=== PATIENT | male | born 1980 | race Caucasian/White ===

== ENCOUNTER 2016-08-25 14:47 | Emergency (ER) | payer OTHER ==
[2016-08-25] MEDS ORDERED: FAMOTIDINE INJ/PF 20 MG/2 ML SDV IV ONE ×2 (14:53→14:55)
[2016-08-25] MEDS ORDERED: DIPHENHYDRAMINE HCL 50 MG/ML VIAL IV ONE (14:53)
[2016-08-25] MEDS ORDERED: DEXAMETHASONE SOD PHOS INJ 10 MG/1 ML VIAL IV ONE (14:53)
[2016-08-25] MEDS ORDERED: NORMAL SALINE 1000 ML 1,000 ML IV ONE (14:54)
[2016-08-25] MEDS ORDERED: DEXTROSE 5%-WATER 250 ML with EPINEPHRINE/PF 1 MG IV PRN ×2 (14:54)
[2016-08-25] MEDS ORDERED: DIPHENHYDRAMINE HCL 50 MG/ML VIAL ONE (14:55)
[2016-08-25] MEDS ORDERED: DEXAMETHASONE SOD PHOSPHATE INJ 4 MG/1 ML VIAL ONE (14:55)
[2016-08-25] MEDS ORDERED: EPINEPHRINE INJ/PF 1 MG/1 ML AMPULE ONE (15:01)
--- NOTE | 2016-08-25 15:08 | ER Document Report ---
ED Allergic Reaction - General Stated Complaint: ALLERGIC REACTION Time Seen by Provider: 08/25/16 14:53 Mode of Arrival: Ambulatory Information source: Patient, Relative - HPI Onset: Just prior to arrival - 1 HOUR [employer] Onset/Duration: Sudden Quality of pain: Burning, Other - ITCHING Severity: Moderate Identified cause: Yes Other exposure: Other - INSECT STINGS Skin rash / itching: Diffuse, "Redness", "Hives" Swelling: Face, Lip(s), Tongue Associated symptoms: Heart racing Similar symptoms previously: Yes - ALLERGIC REACTIONS TO STINGS Recently seen / treated by doctor: No - Related Data Allergies/Adverse Reactions: No Known Allergies Allergy (Verified 08/25/16 15:09) Past Medical History - General Information source: Patient, Relative - Social History Smoking Status: Unknown if Ever Smoked Frequency of alcohol use: Occasional Drug Abuse: None Lives with: Spouse/Significant other Family History: Reviewed & Not Pertinent Patient has suicidal ideation: No Patient has homicidal ideation: No - Medical History Medical History: Negative Surgical Hx: Negative Review of Systems - Review of Systems Constitutional: No symptoms reported EENT: Throat swelling - SLIGHT, Mouth swelling Cardiovascular: No symptoms reported Respiratory: No symptoms reported Gastrointestinal: No symptoms reported Genitourinary: No symptoms reported Musculoskeletal: No symptoms reported Skin: Rash Neurological/Psychological: No symptoms reported Physical Exam - Vital signs Vitals: Resp BP Pulse Ox 24 H 120/73 96 08/25/16 14:54 08/25/16 14:54 08/25/16 14:54 Course - Re-evaluation Re-evalutation: 08/25/16 15:53 Patient reports he's much improved subjectively. Itching has resolved. Sensation of swelling in the throat has resolved. He denies shortness of breath. On exam, he appears comfortable, erythema and urticaria have resolved, and lungs are clear. At this point, epinephrine drip will be discontinued and patient will be observed for another hour. Anticipate discharge if no recurrent symptoms. - Vital Signs Vital signs: Temp Pulse Resp BP Pulse Ox 21 H 107/63 100 08/25/16 16:31 08/25/16 16:31 08/25/16 16:31 Critical Care Note - Critical Care Note Total time excluding time spent on procedures (mins): 30 Comments: LIFE-THREATENING GENERALIZED ANAPHYLAXIS Discharge - Discharge Clinical Impression: Anaphylactic reaction Qualifiers: Encounter type: initial encounter Qualified Code(s): T78.2XXA - Anaphylactic shock, unspecified, initial encounter Condition: Stable Disposition: HOME, SELF-CARE Instructions: Acute Allergic Reaction ([facility]), Anaphylaxis Kit ([facility]), Intravenous (IV) Fluids ([facility]), Corticosteroid Medication ([facility]), Use of Diphenhydramine Additional Instructions: REST, DRINK PLENTY OF FLUIDS. YOU MAY TAKE BENADRYL, 25-50 mg EVERY 4 TO 6 HOUR IF ITCHING RECURS. GET PRESCRIPTION FOR EPI-PEN REFILLED AND USE IT IF NEEDED IN THE FUTURE. RETURN TO E.R. OR FOLLOW UP WITH YOUR PRIMARY CARE PROVIDE IF PROBLEMS. Prescriptions: Epinephrine [Epipen 2-Nish] 0.3 mg IM ASDIR PRN #1 ml PRN Reason: FOR SEVERE ALLERGIC REACTION
[2016-08-25 16:58] VITALS: BP 110/56
== END 2016-08-25 17:15 | disposition home or self-care (01) ==
LOC: ER 14:47
DX: T63.481A Toxic effect of venom of other arthropod, accidental (unintentional), initial encounter (principal); T78.2XXA Anaphylactic shock, unspecified, initial encounter
CPT/HCPCS: 99284; 96361; 96374; 96375; J1100 ×2; J1200; J0171; J7060; J7030; S0028